=== PATIENT | female | born 1995 | race Hispanic/Latino ===

== ENCOUNTER 2020-10-08 17:36 | Emergency (ER) | payer MEDICAID ==
[~2020-10-08] VITALS: Ht 154.9 cm; Wt 113.4 kg
[2020-10-08 17:38] VITALS: BP 97/61
== END 2020-10-08 17:45 | disposition home or self-care (01) ==
LOC: EDH 17:36
DX: R50.9 Fever, unspecified (principal); Z20.822 Contact with and (suspected) exposure to COVID-19; Z53.21 Procedure and treatment not carried out due to patient leaving prior to being seen by health care provider
CPT/HCPCS: 87635; 87804 ×2; C9803

== ENCOUNTER 2025-04-01 18:30 | Emergency (ER) | payer BC, MEDICAID ==
[~2025-04-01] VITALS: Ht 154.9 cm; Wt 98.4 kg
--- NOTE | 2025-04-01 19:13 | NUR ---
PATIENT STATES SHE HAS BEEN FEELING VERY DEPRESSED, THINKS IT IS HER HORMONES, DECIDED SINCE SHE IS ALREADY AT THE EMERGENCY ROOM SHE WOULD ASK FOR HELP WITH HER DEPRESSION. PATIENT DOES NOT HAVE A PLAN, DENIES HI, DENIES A/V HALLUCINATIONS. FURTHER STATES THAT SHE IS SCARED THAT SHE WILL DO SOMETHING TO HURT HERSELF WITHOUT HELP FOR HER DEPRESSION. PATIENT CHANGED INTO PAPER GOWN, PATIENT BELONGINGS COLLECTED AND SECURED.
[2025-04-01 19:19] LABS: IMMATURE GRANULOCYTE ABSOLUTE 0.04 K/uL (0-1); NUCLEATED RED BLOOD CELLS 0.0 % (0.0-0.19); PLATELET COUNT (AUTO) 310 K/uL (130-400); RED BLOOD CELL COUNT(AUTO) 4.52 MIL/uL (4.00-5.50); RED CELL DISTRIBUTION WIDTH 12.8 % (11.0-15.5); WHITE BLOOD COUNT (AUTO) 12.6 K/uL (4.8-10.8)
[2025-04-01 19:37] LABS: CREATININE 0.6 mg/dL (0.5-1.0); GLOMERULAR FILTR. RATE CALC 122 mL/min (>90); GLUCOSE,RANDOM 119 mg/dL (70-105); SODIUM SERUM 137 mmol/L (136-145); UREA NITROGEN, BLOOD 11 mg/dL (7-18)
[2025-04-01 19:44] LABS: ALCOHOL, BLOOD < 3 mg/dL (0-10)
[2025-04-01 22:19] LABS: APPEARANCE,URINE CLEAR (CLEAR); GLUCOSE, URINE (UA) NEGATIVE (NEGATIVE); LEUKOCYTE ESTERASE ,URINE 75 Leu/uL (NEGATIVE); NITRATE,URINE NEGATIVE (NEGATIVE); OCCULT BLOOD,URINE MODERATE (NEGATIVE)
[2025-04-01 22:21] LABS: ADD UA MICROSCOPIC YES
[2025-04-01 22:23] LABS: SQUAMOUS EPITHELIAL CELL,UR RARE /HPF (0-2)
[2025-04-01 22:26] LABS: AMPHET/METH SCREEN,URINE NEGATIVE (NEGATIVE); BARBITURATE SCREEN, URINE NEGATIVE (NEGATIVE); CANNABINOID SCREEN,URINE POSITIVE (NEGATIVE); COCAINE SCREEN,URINE NEGATIVE (NEGATIVE)
--- NOTE | 2025-04-01 22:41 | NUR ---
RAYMOND HORVATH CONTACTED TO INITIATE SCREENING
--- NOTE | 2025-04-01 23:01 | ERN ---
ED Note History of Present Illness Stated Complaint: PAIN TO RT ARM Chief Complaint: Upper Extremity Pain/Injury Time Seen by MD: 18:34 Time Seen by Midlevel: 18:34 Dictation: The patient is a 30-year-old female with a past medical history of gestational diabetes who presents to the emergency department with complaints of nontraumatic right wrist pain. Patient reports the she thinks it was because she slept wrong. Reports her doctor has her on bedrest due to . Patient reports she is seven weeks A1. Patient denies any current acute complications with her . Reports she has been having some vagin al bleeding but has been follow up with OBGYN which is why she is on bedrest. Patient denies any abdominal pain or any OB complaints. Denies any fevers. Patient also reported that she has been having depression and thoughts of suicide but denies any plan or any recent attempt. Patient thought it was because of her . Denies any homicidal ideations, denies any hallucina tions. Allergies: Coded Allergies: No Known Allergies (Unverified Allergy, Unknown, 10/08/20) Past Medical History Past Medical History: Other Additional Past Medical Hx: OVARIAN CYST Surgical History: Other Surgical History Other: RT OVARY : 3 Para: 1 Aborts: 1 RN Note Reviewed/Agreed w/PFSH: Yes Review of System Dictation Constitutional: Negative for fever,chills, and weight loss Eyes: Negative for injury, pain,redness, and discharge ENT: Negative for injury,pain or swelling Cardiovascular: Negative for chest pain, palpitations, and edema Respiratory: Negative for shortness of breath, cough, and wheezing, Abdomen/GI: Negative for abdominal pain, nausea, vomiting, diarrhea, and constipation Back: Negative for injury and pain : Negative for injury, bleeding and discharge MS/Extremity: Positive for right wrist pain Skin: Negative for rash, and discoloration Neuro: Negative for headache, weakness, numbness, tingling, and seizure Psych: Negative for suicide ideation, homicidal ideation, and hallucinations Initial Vital Sign VS Vital Signs Date Time Temp Pulse Resp B/P (MAP) Pulse Ox O2 Delivery O2 Flow Rate FiO2 04/01/25 18:33 98.1 93 16 118/72 98 Room Air 04/01/25 18:39 0 21 Physical Exam Dictation Vital Signs reviewed General Appearance: Alert, oriented x 3, no acute distress, well developed, nourished. Head and Face: non-traumatic. Eyes: PERRL, pink conjunctivas, eyelid no trauma, anterior chamber with arcus senilis. Ears: Pinnas intact and no signs of trauma or erythema ear canals clear and no discharge TM no erythema Nose: No discharge, no bleeding. Oropharynx: Mouth normal, tongue pink. pharynx clear,no erythema, tonsils no exudates, no abscesses noted, mucous membrane moist Neck: Supple, non-tender, no thyromegaly, no masses, no JVD, no bruits Breast:Deferred Chest:No tenderness, no crepitus, no paradoxical movement, no retractions Lungs:Clear, well-ventilated, symmetric, no rales, no wheezing, no rhonchi, no stridor, good breath sounds bilaterally Heart: Regular rate, regular rhythm, no murmur, no gallops Vascular: no peripheral edema, radial pulses 3+ bilaterally Abdomen: Soft, positive bowel sounds, nondistended, no guarding, nontender, no rebound, no masses no hepatomegaly, no splenomegaly, no Armas's sign, no hernias. Rectal: Deferred Genital: Deferred Neurological: Normal speech, motor function intact, sensory function intact Musculoskeletal: Neck nontender, full range of motion, back nontender, full range of motion, Extremities: nontender, full range of motion Skin: Color pink, dry, no turgor, no rash, no lacerations, no abrasions, no contusions. Lymphatic: Deferred Results (Laboratory/Radiology) Laboratory/Radiology Laboratory Tests Test 04/01/25 19:12 04/01/25 21:22 White Blood Count 12.6 K/uL (4.8-10.8) H Red Blood Count 4.52 MIL/uL (4.00-5.50) Hemoglobin 13.8 g/dL (12.0-16.0) Hematocrit 39.9 % (36-48) Mean Corpuscular Volume 88.3 fL (79-99) Mean Corpuscular Hemoglobin 30.5 pg (27.0-33.0) Mean Corpuscular Hemoglobin Concent 34.6 g/dL (32.0-36.0) Red Cell Distribution Width 12.8 % (11.0-15.5) Platelet Count 310 K/uL (130-400) Mean Platelet Volume 10.0 fL (7.5-10.5) Immature Granulocyte % (Auto) 0.3 % (0-1) Neutrophils (%) (Auto) 72.9 % (40.0-77.0) Lymphocytes (%) (Auto) 18.9 % (21.0-51.0) L Monocytes (%) (Auto) 7.5 % (3.0-13.0) Eosinophils (%) (Auto) 0.2 % (0.0-8.0) Basophils (%) (Auto) 0.2 % (0.0-5.0) Neutrophils # (Auto) 9.2 K/uL (1.8-7.7) H Lymphocytes # (Auto) 2.4 K/uL (1.0-4.8) Monocytes # (Auto) 0.9 K/uL (0.1-1.0) Eosinophils # (Auto) 0.02 K/uL (0.00-0.70) Basophils # (Auto) 0.03 K/uL (0.00-0.20) Absolute Immature Granulocyte (auto 0.04 K/uL (0-1) Nucleated Red Blood Cells 0.0 % (0.0-0.19) Sodium Level 137 mmol/L (136-145) Potassium Level 3.7 mmol/L (3.5-5.1) Chloride Level 101 mmol/L (101-111) Carbon Dioxide Level 26 mmol/L (21-32) Blood Urea Nitrogen 11 mg/dL (7-18) Creatinine 0.6 mg/dL (0.5-1.0) Glomerular Filtration Rate Calc 122 mL/min (>90) Random Glucose 119 mg/dL (70-105) H Total Calcium 9.0 mg/dL (8.5-10.1) Salicylates Level < 2.8 mg/dL (2.8-20.0) L Acetaminophen Level < 1 mcg/mL (10-30) L Serum Alcohol < 3 mg/dL (0-10) Urine Color LIGHT-YELLOW (YELLOW) Urine Appearance CLEAR (CLEAR) Urine pH 5.5 (5.0-8.0) Urine Specific Jackson 1.011 (1.001-1.031) Urine Protein NEGATIVE mg/dL (NEGATIVE) Urine Glucose (UA) NEGATIVE mg/dL (NEGATIVE) Urine Ketones 20 mg/dL (NEGATIVE) H Urine Occult Blood MODERATE (NEGATIVE) H Urine Nitrate NEGATIVE (NEGATIVE) Urine Bilirubin NEGATIVE mg/dL (NEGATIVE) Urine Urobilinogen 0.2 mg/dL (0.2-1.0) Urine Leukocyte Esterase 75 Singh/uL (NEGATIVE) H Urine RBC 2-5 /HPF (0-1) H Urine WBC 6-10 /HPF (0-1) H Urine Squamous Epithelial Cells RARE /HPF (0-2) Urine Bacteria RARE /HPF (None Seen) Urine HCG, Qualitative POSITIVE (NEGATIVE) H Urine Opiates Screen NEGATIVE (NEGATIVE) Urine Barbiturates Screen NEGATIVE (NEGATIVE) Urine Phencyclidine Screen NEGATIVE (NEGATIVE) Urine Amphetamines Screen NEGATIVE (NEGATIVE) Urine Benzodiazepines Screen NEGATIVE (NEGATIVE) Urine Cocaine Screen NEGATIVE (NEGATIVE) Urine Marijuana (THC) Screen POSITIVE (NEGATIVE) H Labs Reviewed?: Yes ED Course ED Course Orders Procedure Category Date Status Time Cbc With Differential LAB 04/01/25 Complete 18:49 Alcohol, Blood LAB 04/01/25 Complete 18:49 Salicylate LAB 04/01/25 Complete 18:49 Acetaminophen LAB 04/01/25 Complete 18:49 Urinalysis Profile LAB 04/01/25 Complete 18:49 Basic Metabolic Panel LAB 04/01/25 Complete 18:49 Acetaminophen 500mg PHA 04/01/25 Complete Tab (Tylenol 500mg T 19:00 Drug Screen Urine LAB 04/01/25 Complete 18:49 ,Urine Test LAB 04/01/25 Complete 18:59 Culture Urine ALEXIS 04/01/25 In Process 22:21 Ceftriaxone 1g Vial PHA 04/01/25 Complete (Rocephine 1g Inj) 22:30 Current Medications Medications (Trade) Dose Ordered Sig/Jaime Route PRN Reason Start Time Stop Time Status Last Admin Dose Admin Acetaminophen (TYLenol 500MG TAB) 1,000 mg ONCE PO 04/01/25 19:00 04/01/25 23:00 DC 04/01/25 19:28 Ceftriaxone Sodium (ROCEphine 1G INJ) 1 gm ONCE ONCE IM 04/01/25 22:30 04/01/25 22:31 DC 04/02/25 00:18 Vital Signs Date Time Temp Pulse Resp B/P (MAP) Pulse Ox O2 Delivery O2 Flow Rate FiO2 04/02/25 00:48 98.8 81 15 132/72 98 Room Air* 0 21 04/01/25 19:34 99.9 80 15 139/81 100 Room Air* 0 21 04/01/25 18:39 98.1 93 16 118/72 98 Room Air* 0 21 04/01/25 18:33 98.1 93 16 118/72 98 Room Air Medical Decision Making MDM The patient is a 30-year-old female with a past medical history of gestational diabetes who presents to the emergency department with complaints of nontraumatic right wrist pain. Patient reports the she thinks it was because she slept wrong. Reports her doctor has her on bedrest due to . Patient reports she is seven weeks A1. Patient denies any current acute complications with her . Reports she has been having some vaginal bleeding but has been follow up with OBGYN which is why she is on bedrest. Patient denies any abdominal pain or any OB complaints. Denies any fevers. Patient also reported that she has been having depression and thoughts of suicide but denies any plan or any recent attempt. Patient thought it was because of her . Denies any homicidal ideations, denies any hallucinations. CBC showed mild leukocytosis, no anemia, chemistry showed no electrolyte imbalance, normal renal function urine drug screen showed positive for marijuana, positive for leukocyte esterase. Patient was giving a dose of Rocephin and Tylenol for the wrist pain. Patient with no deformities or wounds to the wrist reports she thinks she slept wrong but there was no trauma to the area. Patient was evaluated by [email or web address]. At this time patient does not meet criteria for inpatient and we will be followed up as outpatient. Patient with no current suicidal plan. No hallucinations or who homicidal ideations patient reports that she has depression but reports that she does not want to hurt herself. Patient will be discharged to follow up with the OBGYN and [facility] as outpatient. Differential diagnosis: Suicidal ideations, wrist sprain, electrolyte imbalance Need for hospitalization: Patient does not meet criteria for hospitalization. There are no social concerns with this patient. DX & DISP Disposition: Discharge Departure Impression: Primary Impression: Depression Additional Impressions: UTI (urinary tract infection), Right wrist pain, Marijuana abuse Condition: Stable Scripts Cephalexin Monohydrate (Keflex) 500 Mg Cap 500 MG PO QID for 7 Days, #28 CAP Prov: HENRIK LLAMAS [employer] 04/02/25 Additional Instructions: Your labs were unremarkable except you had a urinary tract infection. Please follow up with the your OBGYN in your primary doctor. You can take Tylenol as needed for the pain. Please follow up with [facility]. They will be contacting you soon. If anything worsens please return to ER. FOLLOW-UP WITH PRIMARY CARE PROVIDER IN 1 TO 2 DAYS. TAKE MEDICATIONS DIRECTED HERE IN THE EMERGENCY ROOM. OKAY TO CONTINUE HOME MEDICATIONS UNLESS OTHERWISE DISCUSSED DURING YOUR VISIT IN THE EMERGENCY ROOM TODAY. RETURN TO YOUR NEAREST EMERGENCY ROOM IF SYMPTOMS WORSEN OR IF THERE IS NO IMPROVEMENT. CALL 911 IF YOU NEED IMMEDIATE ASSISTANCE. TAKE TYLENOL [id number] NEEDED AND IF NO CONTRAINDICATIONS ARE PRESENT. INCREASE ORAL HYDRATION. A WOUND CULTURE OR URINE CULTURE WAS ORDERED HERE IN THE EMERGENCY ROOM DEPARTMENT PLEASE FOLLOW-UP WITH PRIMARY CARE PROVIDER AND ADVISE THEM TO GET REPEAT PORTS FROM OUR FACILITY. IF YOU HAD ANY EDITA WRAP/SPLINTS THAT WERE APPLIED HERE, PLEASE DO NOT REMOVE THEM UNTIL YOU SEE YOUR PRIMARY CARE OR SPECIALTY. Referrals: MIO BENTLEY (PCP) Time of Disposition: 01:14 I have reviewed the case, and I agree with, Diagnosis and Plan HENRIK LLAMAS Apr 01, 2025 23:01
--- NOTE | 2025-04-01 23:47 | NUR ---
SCREENER AT BEDSIDE
[2025-04-02 00:48] VITALS: BP 132/72; PULSE 81; RESP 15; TEMP 98.8; O2SAT 98
--- NOTE | 2025-04-02 00:54 | NUR ---
PER SCREENER, PATIENT DOES NOT MEET CRITERIA FOR INPATIENT SERVICES
== END 2025-04-02 01:27 | disposition home or self-care (01) ==
LOC: EDH 18:30
DX: F32.A Depression, unspecified (principal); N39.0 Urinary tract infection, site not specified; M25.531 Pain in right wrist; F12.10 Cannabis abuse, uncomplicated; Z79.899 Other long term (current) drug therapy
CPT/HCPCS: 99283; 80048; 80305; 85025; 87086; 81001; 81025; 36415; 96372; G0481; J0696